=== PATIENT | male | born 1980 | race Caucasian/White ===

== ENCOUNTER 2019-06-26 09:49 | Emergency (ER) | payer OTHER ==
[2019-06-26 10:12] VITALS: BP 135/85
--- NOTE | 2019-06-26 10:19 | UC ---
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 Cough has decreased, but he has had 2 days of increased sinus pressure and headache, with associated increase in fatigue. Drainage clear, no fever. Had sinusitis last year hich lasted for weeks, prompting him to come in today. 3 your children at home, 2 had flu A - History of Current Complaint Chief Complaint: UCRespiratory Stated Complaint: SINUS ISSUES Time Seen by Provider: 06/26/19 10:06 Hx Obtained From: Patient Onset/Duration: Gradual Onset Severity: Mild Pain Intensity: 2 Cough: Nonproductive - cough has been decreasing. Associated Signs & Symptoms: Positive: Sinus Discomfort, Nasal Discharge. Negative: Wheezing, Fever - Epiglottits Risk Factors Epiglottis Risk Factors: Negative - Allergies/Home Medications Allergies/Adverse Reactions: Allergies Allergy/AdvReac Type Severity Reaction Status Date / Time codeine Allergy Unknown Verified 06/26/19 10:09 Reaction Details Home Medications: Home Medications Acetaminophen [Tylophen] 2 tab PO ONCE PRN 06/26/19 [History Confirmed 06/26/19] Amoxicillin/Clavulanate TAB* [Augmentin TAB 875*] 875 mg PO BID #20 tab [Rx] Ibuprofen 400 mg PO ONCE PRN 06/26/19 [History Confirmed 06/26/19] PMH/Surg Hx/FS Hx/Imm Hx Previously Healthy: Yes - Surgical History Surgical History: Yes Surgery Procedure, Year, and Place: arm fracture repair - Family History Known Family History: Positive: None - parents living and healthy - Social History Occupation: Employed Full-time Lives: With Family Alcohol Use: Daily Alcohol Amount: 1 beer/day Substance Use Type: None Smoking Status (MU): Never Smoked Tobacco Review of Systems All Other Systems Reviewed And Are Negative: Yes Constitutional: Positive: Fatigue. Negative: Fever Skin: Positive: Negative ENT: Positive: Sore Throat, Nasal Discharge, Sinus Congestion Respiratory: Positive: Cough Cardiovascular: Positive: Negative Gastrointestinal: Positive: Negative Genitourinary: Positive: Negative Motor: Positive: Negative Neurovascular: Positive: Negative Musculoskeletal: Positive: Negative Neurological/Mental Status: Positive: Headache Psychological: Positive: Negative Is Patient Immunocompromised?: No Physical Exam Triage Information Reviewed: Yes Appearance: Well-Appearing, No Pain Distress Vital Signs: Initial Vital Signs Temp 98.2 F 06/26/19 10:05 Pulse 64 06/26/19 10:05 Resp 18 06/26/19 10:05 BP 135/85 06/26/19 10:05 Pulse Ox 98 06/26/19 10:05 Eyes: Positive: Conjunctiva Clear ENT: Positive: Pharyngeal erythema, TM dull - bilateral, Sinus tenderness. Negative: Tonsillar swelling, Tonsillar exudate Neck: Positive: Supple, Nontender, No Lymphadenopathy Respiratory: Positive: Lungs clear, Normal breath sounds, No respiratory distress Cardiovascular: Positive: RRR, No Murmur Musculoskeletal Exam: Normal Neurological Exam: Normal Psychological Exam: Normal Skin Exam: Normal Throat Pain/Nasal Course/Dx - Course Course Of Treatment: Discussed treatment, and when to initiate antibiotics. Discussed saline and Flonase to relieve sinus pressure. - Differential Dx/Diagnosis Differential Diagnosis/HQI/PQRI: Laryngitis, Pharyngitis, Sinusitis, Tonsillitis , URI Provider Diagnosis: Sinusitis Discharge ED - Sign-Out/Discharge Documenting (check all that apply): Patient Departure All imaging exams completed and their final reports reviewed: No Studies - Discharge Plan Condition: Stable Disposition: HOME Prescriptions: Amoxicillin/Clavulanate TAB* [Augmentin TAB 875*] 875 mg PO BID #20 tab Patient Education Materials: Sinusitis (ED) Referrals: No Primary Care Phys,NOPCP [Primary Care Provider] - Additional Instructions: As discussed, it would be reasonable to defer antibiotics for several days. You can promote sinus drainage with use of saline spray, hot showers, and addition of flonase spray 2 sprays to both nostrils once daily. Indications to begin antibiotic are fever, worsening pain, or persistent symptoms for a further 7 days. - Billing Disposition and Condition Condition: STABLE Disposition: Home
== END 2019-06-26 11:06 | disposition home or self-care (01) ==
LOC: UCEAST 09:49
DX: J32.9 Chronic sinusitis, unspecified (principal); J02.9 Acute pharyngitis, unspecified; R05 Cough; R53.83 Other fatigue; Z88.5 Allergy status to narcotic agent
CPT/HCPCS: 99202; G0463